=== PATIENT | male | born 1960 | race American Indian/Alaskan Native ===

== ENCOUNTER 2020-12-03 03:20 | Emergency (ER) | payer SELFPAY ==
[2020-12-03] MEDS ORDERED: ACETAMINOPHEN 500 MG TAB PO ONE (05:04)
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
[2020-12-03 07:09] VITALS: BP 140/97
== END 2020-12-03 06:50 | disposition left against medical advice (07) ==
LOC: ED 03:20
DX: S00.83XA Contusion of other part of head, initial encounter (principal); S02.69XA Fracture of mandible of other specified site, initial encounter for closed fracture; Y04.8XXA Assault by other bodily force, initial encounter; Y93.89 Activity, other specified; Y92.89 Other specified places as the place of occurrence of the external cause; Y99.8 Other external cause status
CPT/HCPCS: 70450; 70486; 72125